=== PATIENT | male | born 1940 | race Caucasian/White ===

== ENCOUNTER 2016-08-23 08:18 | Emergency (ER) | payer MEDICARE, OTHER ==
[2016-08-23 08:31] VITALS: BP 158/85
--- NOTE | 2016-08-23 09:17 | UC ---
Dav Quezada Rebecca, scribed for Analia Martinez MD on 08/23/16 at 0847 . Skin Complaint HPI - HPI Summary HPI Summary: Pt is a 75 y/o M accompanied by his who presents to [facility] c/o erythematous , circular rash on the right buttock. Rash began 3-4 days ago with associated discomfort. Pt states initially rash was "5 inches around" , but seemed to get larger yesterday. POt states has obious white central area and looks like a "target" Pt states pain has improved and the erythematous color has improved. Pain was previously more severe, is currently ranked 4/10 and characterized as an ache. No drainage., no red streaking. Sx aggravated by sitting and palpation. no analgesia taken. Denies erythema anywhere else or any drainage. [place] earlier this [place] and last week denies removing any ticks but states knowledge of ticks in this area. No fevers, chills. No cp, sob. No body aches, joint aches, muscle pain. No king, vision changes. No PMHx Lyme Disease. PCP is Dr. Etienne. DA. Patient's medications reviewed this visit. - History of Current Complaint Chief Complaint: [facility] Time Seen by Provider: 08/23/16 08:42 Stated Complaint: TICK BITE W/ BULLSEYE Hx Obtained From: Patient Onset/Duration: Lasting Days - 3-4 days, Still Present Skin Exposure Onset/Duration: Days Ago - 3-4 days ago Timing: Constant Onset Severity: Severe Current Severity: Moderate Pain Intensity: 4 Pain Scale Used: 0-10 Numeric Location: Other - Buttock Character: Pain, Redness Aggravating: Touch, Other - Sitting Alleviating: Nothing Associated Signs & Symptoms: Positive: Negative. Negative: Drainage - Allergy/Home Medications Allergies/Adverse Reactions: Allergies Allergy/AdvReac Type Severity Reaction Status Date / Time No Known Allergies Allergy Verified 08/23/16 08:24 Home Medications: Home Medications Allopurinol TAB* [Zyloprim 100 MG TAB*] 100 mg PO EVERY OTHER DAY 08/23/16 [ History Confirmed 08/23/16] Aspirin [Aspirin 81 MG TAB] 81 mg PO EVERY OTHER DAY 08/23/16 [History Confirmed 08/23/16] Colchicine [Mitigare] 0.6 mg PO DAILY PRN 08/23/16 [History Confirmed 08/23/16] Indomethacin CAP* [Indocin CAP*] 25 mg PO TID PRN 08/23/16 [History Confirmed ] Review of Systems Constitutional: Negative Skin: Rash - Circular, erythematous rash on the right buttock; Denies rash anywhere else on the body and any drainage Eyes: Negative ENT: Negative Respiratory: Negative Cardiovascular: Negative Gastrointestinal: Negative Genitourinary: Negative Motor: Negative Neurovascular: Negative Musculoskeletal: Negative Neurological: Negative Psychological: Negative All Other Systems Reviewed And Are Negative: Yes PMH/Surg Hx/FS Hx/Imm Hx - Additional Past Medical History Additional PMH: Gout Previously Healthy: Yes GI/ History: Diverticulitis - Surgical History Surgical History: Yes Surgery Procedure, Year, and Place: THUMB SURGERY - 24 YEARS AGO. HERNIATED DISC BULGES - 2 MONTHS AGO - Family History Known Family History: Positive: Diabetes - father, Other - [place] (mother) - Social History Alcohol Use: Occasionally Substance Use Type: None Smoking Status (MU): Former Smoker Physical Exam Triage Information Reviewed: Yes Appearance: Well-Appearing, No Pain Distress, Well-Nourished Vital Signs: Initial Vital Signs Temp 97.5 F 08/23/16 08:27 Pulse 78 08/23/16 08:27 Resp 16 08/23/16 08:27 BP 158/85 08/23/16 08:27 Pulse Ox 96 08/23/16 08:27 Vital Signs Reviewed: Yes Eye Exam: Normal Eyes: Positive: Conjunctiva Clear. Negative: Discharge ENT Exam: Normal ENT: Positive: Hearing grossly normal Neck exam: Normal Neck: Positive: Supple, Nontender, No Lymphadenopathy Respiratory Exam: Normal Respiratory: Positive: Chest non-tender, Lungs clear, Normal breath sounds, No respiratory distress Cardiovascular Exam: Normal Cardiovascular: Positive: RRR, No Murmur, Pulses Normal Abdominal Exam: Normal Abdomen Description: Positive: Nontender, No Organomegaly Bowel Sounds: Positive: Present Musculoskeletal Exam: Normal Musculoskeletal: Positive: Strength Intact Neurological Exam: Normal Neurological: Positive: Alert Psychological Exam: Normal Psychological: Positive: Normal Response To Family Skin: Positive: Other - Right buttock - pt with circular, erythematous area approximately 4inched diameter with central clearing - bullseye appearance. mild wamrth. Not raised. no fluctuance, no induration, no tender Course/Dx - Course Course Of Treatment: Blood pressure noted and patient informed to follow up with PCP. Pt with target appearing rash on right buttock - appearance of lyme associated rash. Pt was in wooded area without known tick bite. Will start doxycycline. recommend f/u with pcp or ID. return precautions discussed. lyme serology ordered. pt and spouse comfortable and in agreement with plan. recommend consider take a photo with precautions to document for follow-up appointment - Diagnoses Provider Diagnoses: rash concerning for lyme Discharge - Discharge Plan Condition: Stable Disposition: HOME Prescriptions: DOXYcycline CAP(*) [DOXYcycline 100MG CAP(*)] 100 mg PO BID #40 cap Patient Education Materials: Acute Rash (ED), Lyme Disease (ED) Referrals: Yolette MARTI,Louie Sanchez [Medical Doctor] - Norm Etienne MD [Medical Doctor] - Additional Instructions: - Keep area clean and dry - Take antibotics as prescribed - The doctor that evaluated today is concerned your rash may be caused by Lyme' s disease. You have had blood testing done to further evaluate this. It is strongly recommended you schedule a follow-up appointment with Dr. Etienne or Dr. De La Vega (infectious disease specialist) - call to schedule an appointment for next week - Call your doctor or go to the emergency department if you develop increased reddness, red streaking, drainage, fever, body aches or any other questions or concerns - the antibiotic may cause skin sensitivity - it is recommended you avoid excess sun exposure while taking these medications The documentation as recorded by the Dav rascon Rebecca accurately reflects the service I personally performed and the decisions made by me, Analia Martinez MD.
== END 2016-08-23 09:13 | disposition home or self-care (01) ==
LOC: UCEAST 08:18
DX: R81 Glycosuria (principal)
CPT/HCPCS: 86618; 99202; G0463